=== PATIENT | male | born 1940 | race Asian ===

== ENCOUNTER 2017-01-14 11:00 | Observation (INO) | payer BC ==
[~2017-01-14] VITALS: Ht 160 cm; Wt 64.9 kg
[2017-01-14 11:34] LABS: Basophils # (auto) 0 uL; Basophils % (auto) 0.5 % (0.0-2.0); Eosinophils # (auto) 0.2 uL; Eosinophils % (auto) 2.3 % (0.0-7.0); Hematocrit 41.6 % (41.0-53.0); Lymphocytes # (auto) 2.1 uL; Lymphocytes % (auto) 29.2 % (10.0-50.0); Mean Corpuscular Hemoglobin 30.7 pg (28.0-32.0); Mean Corpuscular Hgb Conc. 33.6 g/dL (32.0-36.0); Mean Corpuscular Volume 91.6 fL (80.0-100.0); Mean Platelet Volume 8.3 fL (6.9-10.8); Monocytes # (auto) 0.7 uL; Monocytes % (auto) 9.4 % (0.0-12.0); Neutrophils # (auto) 4.2 uL; Neutrophils % (auto) 58.6 % (37.0-80.0); Nucleated Red Blood Cells % 0.1 %; Platelet Count (auto) 232 10^3/uL (140-450); Red Cell Distribution Width 13.3 % (11.8-14.3); White Blood Cell 7.2 10^3/uL (4.4-10.8)
[2017-01-14 11:39] LABS: Urine RBC None Seen /hpf (0 - 3)
[2017-01-14] MEDS ORDERED: MECLIZINE HCL 25 MG TAB PO ONE (11:45)
[2017-01-14 11:48] LABS: Urine Bilirubin Negative (Negative); Urine Blood Negative /uL (Negative); Urine Color Yellow (Yellow); Urine Glucose Normal (Normal); Urine Ketone Negative (Negative); Urine Nitrite Negative (Negative); Urine Squamous Epithelial Cell FEW /hpf (<5); Urine Urobilinogen Normal (Negative); Urine pH 7.5 (5.0-8.0)
[2017-01-14 11:52] LABS: Bilirubin, Total 1.2 mg/dL (0.2-1.0); Calcium 8.9 mg/dL (8.5-10.1); Potassium 3.8 mmol/L (3.5-5.1)
[2017-01-14 11:53] LABS: Total Protein 7.6 g/dL (6.4-8.2)
[2017-01-14 12:25] VITALS: BP 150/63
== END 2017-01-14 12:58 | disposition home or self-care (01) | DRG 149 ==
LOC: ER 11:00 → OVERFLOW 11:43 → ER 12:58
PROVIDERS: ADMIT Emergency Medicine; ATTEND Emergency Medicine
DX: R42 Dizziness and giddiness (principal); I10 Essential (primary) hypertension; Z87.891 Personal history of nicotine dependence
CPT/HCPCS: 36415; 70450; 71010; 80053; 81001; 83735; 84484; 85025; 93005; 99285; G0378; J8597

== ENCOUNTER 2020-08-22 07:11 | Day surgery (SDC) | payer OTHER ==
[~2020-08-22] VITALS: Ht 160 cm; Wt 65.8 kg
[~2020-08-22 07:11] MED LIST: ASPI-543 PO; FINA5TAB4 PO; LISI40TA11 PO; OMEP20TA PO; SIMV10TA84 PO; TAM04C PO
[2020-08-22] MEDS ORDERED: LIDOCAINE 2%HCL (LOCAL ANESTH.) INJ 20ML MDV ONE (07:38)
[2020-08-22] MEDS ORDERED: IODIXANOL 320MG/ML 100ML BTL IV ONE ×3 (07:38→08:14)
[2020-08-22] MEDS ORDERED: ANGIOMAX 250 MG VIAL IV ONE (08:03)
[2020-08-22] MEDS ORDERED: fentaNYL CITRATE 100 MCG/2 ML VL ONE (08:04)
[2020-08-22] MEDS ORDERED: VERAPAMIL 2.5MG/ML INJ 2ML VIAL IV ONE (08:04)
[2020-08-22] MEDS ORDERED: MIDAZOLAM HCL 1MG/1ML-2 ML VIAL ONE (08:04)
[2020-08-22] MEDS ORDERED: SODIUM CHL 0.9% 50 ML ONE ×2 (08:05→08:07)
[2020-08-22] MEDS ORDERED: NITROGLYCERIN 5MG/ML 10ML VIAL IV ONE (08:06)
[2020-08-22] MEDS ORDERED: TICAGRELOR 90 MG TAB ONE (08:29)
[2020-08-22] MEDS ORDERED: ASPirin 325 MG TAB ONE (08:35)
[2020-08-22] MEDS ORDERED: HYDROcodone-ACET 5/325MG TAB PO PRN (09:30)
[2020-08-22] MEDS ORDERED: ACETAMINOPHEN 500 MG TAB PO PRN (09:30)
[2020-08-22] MEDS ORDERED: ONDANSETRON HCL 4 MG/2 ML VIAL IV PRN (09:30)
== END 2020-08-22 15:15 | disposition home or self-care (01) ==
LOC: CATH 07:11
PROVIDERS: ATTEND Internal Medicine
DX: I25.118 Atherosclerotic heart disease of native coronary artery with other forms of angina pectoris (principal); I10 Essential (primary) hypertension; E78.5 Hyperlipidemia, unspecified; J45.909 Unspecified asthma, uncomplicated; Z88.0 Allergy status to penicillin; Z20.822 Contact with and (suspected) exposure to COVID-19; Z98.890 Other specified postprocedural states; Z79.899 Other long term (current) drug therapy; Z87.891 Personal history of nicotine dependence; Z79.82 Long term (current) use of aspirin
CPT/HCPCS: 93458; C1725; C1769; C1874; C1887; C1894; J0583; J1644; J2250; J3010; J3490; Q9967; U0003; 99152; 99153; C9600

== ENCOUNTER 2020-10-26 09:24 | Emergency (ER) | payer OTHER ==
[~2020-10-26] VITALS: Ht 157.5 cm; Wt 63.5 kg
[2020-10-26 09:30] VITALS: BP 147/69
== END 2020-10-26 09:37 | disposition left against medical advice (07) ==
LOC: ER 09:24
DX: M79.662 Pain in left lower leg (principal); M79.661 Pain in right lower leg; Z53.21 Procedure and treatment not carried out due to patient leaving prior to being seen by health care provider

== ENCOUNTER 2020-10-27 07:29 | Emergency (ER) | payer OTHER ==
[~2020-10-27] VITALS: Ht 160 cm; Wt 63.5 kg
[2020-10-27] MEDS ORDERED: ASPirin 81 mg TAB PO ONE (08:45)
[2020-10-27 09:28] LABS: Basophils # (auto) 0 10 ^3/uL (0-0.2); Basophils % (auto) 0.7 % (0.0-2.0); Eosinophils # (auto) 0.2 10 ^3/uL (0-0.8); Eosinophils % (auto) 3.4 % (0.0-7.0); Hematocrit 38.4 % (41.0-53.0); Hemoglobin 13.4 g/dL (13.5-17.5); Lymphocytes # (auto) 1.3 10 ^3/uL (0.4-5.4); Lymphocytes % (auto) 21.2 % (10.0-50.0); Mean Corpuscular Hemoglobin 31.4 pg (28.0-32.0); Mean Corpuscular Hgb Conc. 34.8 g/dL (32.0-36.0); Mean Corpuscular Volume 90.3 fL (80.0-100.0); Monocytes # (auto) 0.7 10 ^3/uL (0-1.3); Monocytes % (auto) 11.2 % (0.0-12.0); Neutrophils # (auto) 3.9 10 ^3/uL (1.6-8.6); Neutrophils % (auto) 63.5 % (37.0-80.0); Red Blood Cells 4.26 10^6/uL (4.5-5.90); Red Cell Distribution Width 13.2 % (11.8-14.3); White Blood Cell 6.2 10^3/uL (4.4-10.8)
[2020-10-27 09:44] LABS: Albumin 3.6 g/dL (3.4-5.0); Anion Gap 8 (5-15); BUN/Creatinine Ratio 15.1; Blood Urea Nitrogen 24 mg/dL (7-18); Calcium 9.2 mg/dL (8.5-10.1); Carbon Dioxide 30 mmol/L (21-32); Chloride 101 mmol/L (98-107); GFR African American 54 mL/min; GFR Non-African American 45 mL/min; Glucose 111 mg/dL (74-106); Potassium 3.8 mmol/L (3.5-5.1); Sodium 139 mmol/L (136-145)
[2020-10-27 09:49] LABS: Alanine Aminotransferase 35 U/L (16-61); Alkaline Phosphatase 38 U/L (45-117); Aspartate Aminotransferase 20 U/L (15-37); Bilirubin, Total 0.8 mg/dL (0.2-1.0)
[2020-10-27] MEDS ORDERED: cefTRIAXone 1GM/50ML D5W 50 ML IV ONE (11:00)
[2020-10-27 12:04] VITALS: BP 128/67
== END 2020-10-27 12:09 | disposition home or self-care (01) ==
LOC: ER 07:29
DX: I24.9 Acute ischemic heart disease, unspecified (principal); I10 Essential (primary) hypertension; I25.2 Old myocardial infarction; Z90.49 Acquired absence of other specified parts of digestive tract; Z87.891 Personal history of nicotine dependence; Z79.82 Long term (current) use of aspirin; Z79.899 Other long term (current) drug therapy; Z88.0 Allergy status to penicillin
CPT/HCPCS: 36415; 71045; 74176; 80053; 84484; 85025; 85049; 93005; 96365; 99285; J0696

== ENCOUNTER 2022-12-22 17:16 | Emergency (ER) | payer OTHER ==
[~2022-12-22] VITALS: Ht 160 cm; Wt 65.0 kg
[~2022-12-22 17:16] MED LIST changes: -LISI40TA11 PO; +LISI40TA16 PO; +SIMV10TA20 PO; -SIMV10TA84 PO; -TAM04C PO; +TAMS-35 PO
[2022-12-22 20:20] LABS: Basophils # (auto) 0 10 ^3/uL (0-0.2); Basophils % (auto) 0.6 % (0.0-2.0); Eosinophils # (auto) 0.2 10 ^3/uL (0-0.8); Eosinophils % (auto) 2.7 % (0.0-7.0); Hematocrit 43.6 % (41.0-53.0); Hemoglobin 14.5 g/dL (13.5-17.5); Lymphocytes # (auto) 1.4 10 ^3/uL (0.4-5.4); Mean Corpuscular Hemoglobin 30.1 pg (28.0-32.0); Mean Corpuscular Hgb Conc. 33.3 g/dL (32.0-36.0); Mean Corpuscular Volume 90.6 fL (80.0-100.0); Monocytes # (auto) 0.7 10 ^3/uL (0-1.3); Monocytes % (auto) 8.6 % (0.0-12.0); Neutrophils # (auto) 5.3 10 ^3/uL (1.6-8.6); Neutrophils % (auto) 70.1 % (37.0-80.0); Nucleated Red Blood Cells % 0.1 %; Red Blood Cells 4.82 10^6/uL (4.5-5.90); White Blood Cell 7.6 10^3/uL (4.4-10.8)
[2022-12-22 20:35] LABS: INR 1.16 (0.9-1.15); Partial Thromboplastin Time 28.8 SEC (24.5-34.5); Prothrombin Time 12.1 sec (9.3-11.8)
[2022-12-22 21:23] LABS: Alanine Aminotransferase 23 U/L (7-40); Albumin 4.6 g/dL (3.2-4.8); Alkaline Phosphatase 47 U/L (46-116); Anion Gap 8.3 (5-15); Aspartate Aminotransferase 9 U/L (13-40); BUN/Creatinine Ratio 13.4 (10.0-20.0); Bilirubin, Total 1.1 mg/dL (0.2-1.0); Blood Urea Nitrogen 18 mg/dL (9-23); Calcium 9.8 mg/dL (8.5-10.1); Carbon Dioxide 26.7 mmol/L (20-30); Chloride 104 mmol/L (98-107); Glucose 94 mg/dL (74-106); Magnesium 2.2 mg/dL (1.6-2.6); Potassium 3.9 mmol/L (3.5-5.1); Sodium 139 mmol/L (136-145); Total Protein 7.2 g/dL (5.7-8.2)
[2022-12-22] MEDS ORDERED: PANTOPRAZOLE 40 MG/10 ML VIAL INJ IV ONE (22:00)
[2022-12-22] MEDS ORDERED: DexAMETHasone SOD PHOS 10MG/1ML VIAL INJ IV ONE (22:00)
[2022-12-22] MEDS ORDERED: ASPirin 81 mg TAB PO ONE (22:30)
[2022-12-22 23:00] VITALS: O2SAT 98
[2022-12-22] MEDS ORDERED: hydrALAZINE HCL 20 MG/ML VL IV ONE (23:30)
[2022-12-22] MEDS ORDERED: levETIRAcetam 500 MG/5ML INJ IV ONE (23:36)
[2022-12-23 01:15] VITALS: BP 170/44; PULSE 80; RESP 15; TEMP 98.5; O2SAT 97
== END 2022-12-23 07:07 | disposition short-term general hospital (02) ==
LOC: EDBD 17:16 → ER 17:16
DX: C71.1 Malignant neoplasm of frontal lobe (principal); C79.9 Secondary malignant neoplasm of unspecified site; R55 Syncope and collapse; I10 Essential (primary) hypertension; E78.5 Hyperlipidemia, unspecified; I25.10 Atherosclerotic heart disease of native coronary artery without angina pectoris; I25.2 Old myocardial infarction; Z88.0 Allergy status to penicillin
CPT/HCPCS: 36415; 70450; 71045; 80053; 83735; 83880; 84484; 85025; 85610; 85730; 93005; 96365; 96375; 99291; C9113; J0360; J1100; J1953; J7060